=== PATIENT | male | born 1995 | race Caucasian/White ===

== ENCOUNTER → 2019-02-06 | Outpatient (CLI) | payer OTHER ==
[~2019-02-06] MED LIST: NAPR-837 PO
--- NOTE | 2019-02-06 14:35 | REP ---
Clinical: Ankle injury. Technique: AP, lateral, bilateral oblique views of the right ankle. Findings: Irregularities primarily involving the distal fibula and anterior margin of the distal tibia suggest sequelae of old injury. No acute fracture or dislocation. Ankle mortise appears intact. Impression: Suspected changes related to old injuries. No obvious acute fracture or dislocation. Electronically Signed by Linwood Ramirez MD 02/06/2019 02:26 P
--- NOTE | 2019-02-06 14:36 | REP ---
Clinical: Trauma. Technique: AP, lateral, bilateral oblique views of the right foot . Findings: The osseous structures and joint spaces are intact and normal. There is no evidence for acute fracture or dislocation. Surrounding soft tissues are unremarkable. No subcutaneous emphysema or radiodense foreign body. Impression: No acute fracture or dislocation. Electronically Signed by Linwood Ramirez MD 02/06/2019 02:28 P
== END ==
LOC: M LRY 14:06
PROVIDERS: ATTEND Nurse Practitioner Family
DX: S99.911A Unspecified injury of right ankle, initial encounter (principal); S99.921A Unspecified injury of right foot, initial encounter; X58.XXXA Exposure to other specified factors, initial encounter; Y92.89 Other specified places as the place of occurrence of the external cause; Y93.9 Activity, unspecified; Y99.9 Unspecified external cause status
CPT/HCPCS: 73610; 73630; G0463

== ENCOUNTER 2019-02-24 12:54 | Emergency (ER) | payer OTHER ==
[~2019-02-24] VITALS: Ht 193 cm; Wt 100.1 kg
--- NOTE | 2019-02-24 15:42 | REP ---
Pain after trauma. PRIORS: None. FINDINGS: Three views of the shoulder were performed. The acromioclavicular and glenohumeral relationships are within normal limits. There is no acute fracture or destructive osseous lesions. Electronically Signed by Alex King DO 02/24/2019 04:48 P
[2019-02-24] MEDS ORDERED: NAPR-837 PO (17:42)
[2019-02-24 17:46] VITALS: BP 135/61
== END 2019-02-24 18:02 | disposition home or self-care (01) ==
LOC: M ED 12:54
DX: S43.005A Unspecified dislocation of left shoulder joint, initial encounter (principal); X58.XXXA Exposure to other specified factors, initial encounter; Y92.89 Other specified places as the place of occurrence of the external cause